=== PATIENT | female | born 1975 | race Caucasian/White ===

== ENCOUNTER 2023-04-10 11:19 | Outpatient (AMB) | payer MEDICARE, MEDICAID, SELFPAY ==
--- NOTE | 2023-04-10 13:33 | MHC.OFFWIV ---
Intake Vital Signs 04/10/23 13:36 BMI Reason not done Patient refused/unable BP 112/60 Blood Pressure Location Rt brachial Position Sitting Pulse 65 Pulse Source Pulse Oximeter Temp 97.6 F Temp Source Oral Pulse Oximetry (%) 98 Oxygen Delivery Method Room Air Intake Visit Reasons: SEWER HEAD/possible BV Intake Note: Pt is here today for possible BV Patient Tobacco Use Status: Never used Tobacco Allergies Sulfa (Sulfonamide Antibiotics) Allergy (Unknown, Verified 04/10/23 13:36) stomach upset HPI HPI Comments History of Present Illness Details This is a 47-year-old female with a past medical history of diabetes, depression bipolar disorder presenting for evaluation of dyspareunia and vaginal discharge she has had for the past 2 weeks. Patient denies having any new sexual partners and does not use barrier protection with intercourse. Patient states she has constant thick vaginal discharge that has a foul odor. She denies having any fevers, chills, abdominal pain or flank pain. PFSH Social History Patient Tobacco Use Status: Never used Tobacco Review of Systems Const All systems reviewed & are unremarkable except as noted in HPI and below GI Reports no additional complaints Denies genital lesions, Reports dyspareunia, Reports vaginal discharge and Reports vaginal odor Skin/Breast Reports system reviewed and no additional complaints, except as documented Psych Reports no additional complaints Physical Exam Vital Signs: Last Vital Signs Temp 97.6 F 04/10/23 13:36 Pulse 65 04/10/23 13:36 BP 112/60 04/10/23 13:36 Pulse Ox 98 04/10/23 13:36 Oxygen Delivery Method Room Air 04/10/23 13:36 Const General: cooperative, healthy appearing, comfortable and no acute distress Nutritional Appearance: overweight Orientation/consciousness: patient oriented x3 Limitations: no limitations GI Inspection: Yes normal to inspection Palpation (GI): Soft to palpation and Tenderness to palpation present (GI) suprapubicly Auscultation: normal bowel sounds General: Yes no CVA tenderness External Female Exam: normal external appearance, No erythema, No externally tender and No external swelling Speculum Exam - Vagina: normal appearance of the vagina and abnormal vaginal discharge white (opaque) Speculum Exam - Cervix: normal appearance of the cervix, Abnormal cervical discharge present white and nontender Bimanual exam- vagina & uterus: normal bimanual exam and No Cervical tenderness present Bimanual Exam- Adnexa, other: normal adnexae Back/Spine/Pelvis Back: no CVA tenderness Skin General skin exam: no rashes or lesions noted Neuro General: patient oriented x3 Psych Appearance: grossly normal Mental Status: mental status grossly normal Insight: Good insight present (Psych) Judgement: Good judgement present (Psych) Results AMB Urinalysis, Automated UA Leukoctes 70 Dominick/uL Last Edit by Sindy Mccain, KATHERIN on 04/10/23 14:25 UA Nitrite Negative Last Edit by Sindy Mccain, AGRICULTURAL EQUIPMENT OPERATOR on 04/10/23 14:25 UA Urobilinogen 0.2 mg/dL Last Edit by Sindy Mccain, AGRICULTURAL EQUIPMENT OPERATOR on 04/10/23 14:25 UA Protein 0 mg/dL Last Edit by Sindy Mccain, AGRICULTURAL EQUIPMENT OPERATOR on 04/10/23 14:25 UA pH 6.0 Last Edit by Sindy Mccain, AGRICULTURAL EQUIPMENT OPERATOR on 04/10/23 14:25 UA Blood 0 Bradley/uL Last Edit by Sindy Mccain, AGRICULTURAL EQUIPMENT OPERATOR on 04/10/23 14:25 UA Specific Blodgett 1.015 Last Edit by Sindy Mccain, AGRICULTURAL EQUIPMENT OPERATOR on 04/10/23 14:25 UA Ketone Positive Last Edit by Sindy Mccain, AGRICULTURAL EQUIPMENT OPERATOR on 04/10/23 14:25 UA Bilirubin 0 mg/dL Last Edit by Sindy Mccain, AGRICULTURAL EQUIPMENT OPERATOR on 04/10/23 14:25 UA Glucose 0 mg/dL Last Edit by Sindy Mccain, AGRICULTURAL EQUIPMENT OPERATOR on 04/10/23 14:25 Results Reviewed Results Reviewed: Laboratory Last Values Urine pH (Auto) 6.0 04/10/23 13:54 Specific Blodgett (Auto) 1.015 04/10/23 13:54 Urine Protein (Auto) 0 mg/dL 04/10/23 13:54 Glucose (UA)(Auto) 0 mg/dL 04/10/23 13:54 Urine Ketones (Auto) Positive 04/10/23 13:54 Urine Blood (Auto) 0 Bradley/uL 04/10/23 13:54 Urine Nitrite (Auto) Negative 04/10/23 13:54 Urine Bilirubin (Auto) 0 mg/dL 04/10/23 13:54 Urine Urobilinogen (Auto) 0.2 mg/dL 04/10/23 13:54 Leukocyte Esterase (Auto) 70 Dominick/uL 04/10/23 13:54 urinalysis reviewed with patient. Assessment & Plan Assessment & Plan (1) Dyspareunia in female: Code(s): N94.10 - Unspecified dyspareunia Plan: Gonorrhea, chlamydia, BV and vulvovaginal Catherine testing is initiated and pending. Patient advised to use condoms with all sexual activity. (2) Vaginal discharge: Code(s): N89.8 - Other specified noninflammatory disorders of vagina Plan: Testing is initiated and pending; patient advised to use condoms with all sexual activity. Orders: Orders AMB Urinalysis Automated 04/10/23 Z13.9 - Encounter for screening, unspecified Bacterial Vaginosis Panel 04/10/23 N89.8 - Other specified noninflammatory disorders of vagina CT NG by PCR 04/10/23 N89.8 - Other specified noninflammatory disorders of vagina Coding Level of Care Code Est Pt Level 4 (91299) Diagnoses Dyspareunia in female N94.10 Vaginal discharge N89.8 Time Spent (min) 40
[2023-04-10 13:36] VITALS: BP 112/60; PULSE 65; TEMP 36.4; O2SAT 98
== END 2023-04-10 14:29 | disposition home or self-care (01) ==
PROVIDERS: Visit Provider Physician Assistant
DX: N89.8 Other specified noninflammatory disorders of vagina (principal)
CPT/HCPCS: 81003; 99214

== ENCOUNTER 2023-04-10 13:54 | Outpatient (REF) | payer MEDICARE, MEDICAID, SELFPAY ==
[2023-04-11 06:14] LABS: CT PCR NOT DETECTED (Not Detect.); NG PCR NOT DETECTED (Not Detect.)
[2023-04-11 12:43] LABS: BV Int Neg Control Negative (Negative); BV Int Pos Control Positive (Positive)
== END 2023-04-10 13:55 | disposition home or self-care (01) ==
LOC: HO.LAB 13:54
PROVIDERS: Visit Provider Physician Assistant
DX: N89.8 Other specified noninflammatory disorders of vagina (principal); Z11.3 Encounter for screening for infections with a predominantly sexual mode of transmission; Z11.8 Encounter for screening for other infectious and parasitic diseases
CPT/HCPCS: 0353U; 87480; 87510; 87660